=== PATIENT | female | born 1940 | race Caucasian/White ===

== ENCOUNTER 2016-09-28 04:53 | Inpatient (IN) | payer MEDICARE ==
[2016-09-28 05:18] LABS: Urine Bilirubin Negative (NEGATIVE); Urine Blood Negative /ul (NEGATIVE); Urine Ketone Negative (NEGATIVE); Urine Nitrite Negative (NEGATIVE); Urine Protein 15 mg/dL (NEGATIVE); Urine Specific Gravity >=1.030 SP.GR. (1.005-1.010); Urine Urobilinogen Normal (NORMAL); Urine pH 5.5 pH (5.0-7.0)
[2016-09-28 05:19] LABS: Urine Appearance Clear; Urine Bacteria TRACE; Urine Color Dark Yellow; Urine RBC 0-5 /hpf (0-5); Urine WBC 0-5 /hpf (0-5)
[2016-09-28 05:20] LABS: Urine Amorphous Sediment Few - 1+ (NONE-FEW); Urine Mucus Few - 1+
--- NOTE | 2016-09-28 05:36 | ERNOTE ---
Neuro HPI ER Record Presenting Symptoms: weakness, confusion Time Seen by Provider: 09/28/16 05:05 Source: patient, family Exam Limitations: no limitations Immunizations: IMMUNIZATION HX Immunizations Up to Date Yes History of Influenza Vaccine No Hx Pneumococcal Vaccination No Allergies/Adverse Reactions: Allergies Allergy/AdvReac Type Severity Reaction Status Date / Time Penicillins Allergy Verified 07/24/15 18:38 Home Medications: HOME MEDICATIONS Aspirin [Aspirin Enteric Coated] 81 mg PO DAILY 11/23/12 [Last Taken 04/16/15 06 :30] Donepezil HCl 5 mg PO DAILY 11/23/12 [Last Taken 04/16/15 06:30] Fluticasone/Salmeterol [Advair 250-50 Diskus] 1 puff IH BID #0 disk.w.dev [Last Taken 04/16/15 06:30] Levothyroxine Sodium [Synthroid] 150 mcg PO DAILY 09/28/16 [Last Taken Unknown] Tiotropium [place] [Spiriva] 18 mcg IH DAILY 09/28/16 [Last Taken Unknown] Levofloxacin [Levaquin] 750 mg PO DAILY #5 tablet 10/02/16 [Last Taken Unknown] Potassium Chloride [Klor-Con 10] 20 meq PO BID #60 tablet.sa 10/02/16 [Last Taken Unknown] - History of Present Illness Narrative: states the patient has been more sleepy for the past 24 hours and tonight having difficulty breathing Onset: gradual onset Severity: moderate - Character of Deficits Baseline Cognition: Present: alert, oriented x 4 - with early alzheimers - treated Review of Systems - Review of Systems Constitutional: Present: fatigue, decreased activity level EYE: Present: no symptoms reported ENT: Present: no symptoms reported Respiratory: Present: See HPI, shortness of breath. Absent: cough Cardiology: Absent: chest pain Gastrointestinal/Abdominal: Present: no symptoms reported Genitourinary: Present: no symptoms reported Musculoskeletal: Present: no symptoms reported Skin: Present: no symptoms reported Neurological: Absent: numbness, tingling Endocrine: Present: no symptoms reported Hematologic/Lymphatic: Present: no symptoms reported Psych: Present: no symptoms reported - Patient's Past Medical History Patient History - Medical: Alzheimer's Disease, Diabetes Type 2, Dementia, Hypothyroidism Patient History - Cardiac/Respiratory: COPD Patient History - Cancer: Lung Patient History - Surgical Procedures: Hysterectomy, Total Hip Replacement Patient History - Other: None - Family History Mother Family History - Medical: Father Family History - Medical: Family History - Cardiac/Respiratory: COPD - Social History Living Situations: spouse Psych History: No pertinent hx Smoking Status: Former smoker Have you smoked in the past 12 months: No Alcohol Use: none Drug Use: none - Immunizations Immunizations Up to Date: Yes Hx Pneumococcal Vaccination: No History of Influenza Vaccine: No Physical Exam - Physical Exam General Appearance: Present: wd/wn, alert, no apparent distress Eye Exam: Normal inspection: bilateral, PERRL: bilateral Ears, Nose, Throat: Present: dry mucous membranes - lips cracked and peeling Neck: Present: normal inspection Respiratory: Present: no respiratory distress, decreased breath sounds, expiration (prolonged) Cardiovascular/Chest: Present: regular rate, rhythm, no murmur, normal peripheral pulses Gastrointestinal/Abdominal: Present: normal bowel sounds, tenderness - midline/ suprapubic Back Exam: Present: normal inspection Extremity Exam: Present: normal inspection, no edema Neurological Exam: Present: alert, oriented, normal mood/affect, no motor/ sensory deficits Skin Exam: Present: normal color, warm/dry David Coma Scale - Assess Eye Opening: Spontaneous Motor: Obeys Commands Verbal: Oriented - Total Coma Scale Total: 15 ED Progress - Results and Orders Patient's Lab Results:: I have reviewed the patient's lab results. Results and Orders: Laboratory Tests 09/28/16 09/28/16 05:15 06:25 WBC 26.8 H Hgb 14.0 Hct 42.0 Plt Count 260 Neutrophils % (Manual) 55 Band Neuts % (Manual) 36 H Lymphocytes % (Manual) 6 L Toxic Granulation 1+ Toxic Vacuolation 3+ Dohle Bodies 3+ Urine Color Dark yellow Urine Appearance Clear Urine pH 5.5 Ur Specific [place] >=1.030 Urine Protein 15 H Urine Glucose (UA) Negative Urine Ketones Negative Urine Blood Negative Urine Nitrate Negative Urine Bilirubin Negative Prot Sulfosalicylic Acd Negative Urine Urobilinogen Normal Ur Leukocyte Esterase Negative Urine RBC 0-5 Urine WBC 0-5 Ur Epithelial Cells 5-10 H Amorphous Sediment Few - 1+ Urine Bacteria Trace Urine Mucus Few - 1+ H Urine Culture Comments Culture to follow - Vital Signs Patient's Vital Signs:: I have reviewed the patient's vital signs. Vital Signs: Vital Signs 09/28/16 09/28/16 04:54 05:16 Temperature 37.2 C Pulse Rate 101 H 98 Respiratory 18 Rate Blood Pressure 113/43 O2 Sat by Pulse 86 L Oximetry - X-Ray X-Ray #1 X-Ray: chest Interpretation: Interp. by hi X-ray Comments: RLL infiltrate. chronic scarring bilateral bases. changes of COPD - Progress/Reassessment Chief Complaint: Altered Mental Status Departure Clinical Impression: Pneumonia involving right lung Qualifiers: Pneumonia type: due to unspecified organism Lung location: lower lobe of lung Qualified Code(s): J18.1 - Lobar pneumonia, unspecified organism - Departure Disposition: [facility] Condition: Stable
[2016-09-28 06:30] LABS: Mean Corpuscular Hemoglobin 29.7 pg (27-31); Mean Corpuscular Hgb Conc 33.3 g/dl (32-36); Mean Platelet Volume 10.2 fl (6.0-9.5); Platelet Count 260 K/mm3 (150-450); Red Blood Count 4.72 M/mm3 (4.2-5.4); Red Cell Distribution Width 14.3 % (11.5-14.0); White Blood Count 26.8 K/mm3 (4.0-10.5)
--- OUTSIDE RECORDS SUMMARY | 2016-09-28 06:32 | XMS REPORT | Continuity of Care Document ---
:1940 Author Organization [facility] ([facility]) Address [address] [place] [address] Phone [phone] Care Team Providers Name Role Phone Antione Woody Primary Care Provider [phone] Source Comments This disclosure is being made pursuant to the Care Everywhere program, applicable federal and state laws, and may not contain all informaitonavailable regarding this patient.[facility] ([facility]) Active Allergies and Adverse Reactions Allergen Noted Date Severity Reactions Comments Penicillins 01/02/2015 Unknown Family reported Current Medications Prescription Sig. Disp. Refills Start Date End Date Status fluticasone-salmeterol Use 2 Puffs by Active (ADVAIR 250-50) inhaler inhalation every 12 hours aspirin 81 mg EC tablet Take 81 mg by mouth Active daily atorvastatin 40 mg Take 40 mg by mouth Active tablet daily donepezil 5 mg tablet Take 5 mg by mouth Active daily fenofibrate 54 mg Take 54 mg by mouth Active tablet every morning before breakfast albuterol-ipratropium Use 3 mL by Active 2.5-0.5 mg/3 mL inhalation 3 times inhalation solution daily as needed levothyroxine 175 mcg Take 175 mcg by Active tablet mouth every morning before breakfast polyethylene glycol Take 17 g by mouth Active 3350 (MIRALAX) 17 daily In 12 ounces gram/dose powder of juice or water multivitamin tablet Take 1 Tab by mouth Active daily albuterol 90 Use 2 Puffs by Active mcg/Actuation inhaler inhalation every 6 hours as needed tiotropium (SPIRIVA) 18 Use 18 mcg by Active mcg inhalation capsule inhalation daily metoPROLol succinate Take 100 mg by mouth Active 100 mg XL tablet daily INHALER, ASSIST DEVICES Active (VORTEX HOLDING CHAMBER ADULT NA ) losartan 100 mg tablet Take 100 mg by mouth Active daily BENEFIBER (GUAR GUM) PO Take 6 g by mouth Active daily Add one tbsp to 12 ounces of juice or water daily. Take with Miralax. venlafaxine 75 mg Take 75 mg by mouth Active tablet daily codeine 30 mg tablet Take 1 Tab (30 mg 10 Tab 0 01/06/2015 Active total) by mouth every 4 hours as needed gabapentin 300 mg Take 100 mg by mouth Active capsule 3 times daily levETIRAcetam 500 mg Take 500 mg by mouth Active tablet 2 times daily acetaminophen 325 mg Take 650 mg by mouth Active tablet every 4 hours as needed docusate 100 mg capsule Take 100 mg by mouth Active 2 times daily as needed BISACODYL PO Take by mouth as Active needed traMADol 50 mg tablet Take 50 mg by mouth Active every 6 hours as needed Active Problems Problem Noted Date Closed pelvic ring fracture 01/15/2015 Right hip pain 01/06/2015 Overview: Severe osteopenia. No acute fractures. KALYN (acute kidney injury) 01/06/2015 Overview: Will utilize IV fluids and continue to monitor labs Urinary tract infection with hematuria 01/03/2015 Overview: ecoli UTI on admission ( see culture result from [facility] under media tab); treated with 3 days of Bactrim Altered mental status 01/02/2015 SAH (subarachnoid hemorrhage) 01/02/2015 Overview: CT could not exclude SAH, most likely vascular calcifications. Will continue to monitor neurologic status. Fracture of humeral shaft, right, closed 01/02/2015 Social History Tobacco Use Types Packs/Day Years Used Date Former Smoker 2 30 Quit: 01/02/2007 Tobacco Cessation:Counseling Given: Yes Comments: Alcohol Use Drinks/Week oz/Week Comments No Last Filed Vital Signs Vital Sign Reading Time Taken Blood Pressure 107/63 02/12/2015 11:09 AM CDT Pulse 78 02/12/2015 11:09 AM CDT Temperature 36.1 C (97 F) 02/12/2015 11:09 AM CDT Respiratory Rate 18 01/02/2015 10:00 AM CDT Height 1.651 m (5' 5") 02/12/2015 11:09 AM CDT Weight 69.4 kg (153 lb) 02/12/2015 11:09 AM CDT Body Mass Index 25.46 02/12/2015 11:09 AM CDT Oxygen Saturation 91% 01/06/2015 8:02 AM CDT Plan of Care Health Maintenance Due Date Last Done Comments Hepatitis B Vaccine (1 of 3 - Primary Series) 1940 Tdap Vaccine 1951 Lipid Disorder Screening 1958 Td Vaccine 1958 Mammogram 1980 Colonoscopy 1990 Zoster Vaccine 2000 Osteoporosis Screening (DXA Bone Density) 2005 Pneumococcal Vaccine (1 of 2 - PCV13) 2005 Influenza Vaccine: Seasonal (#1) 01/31/2016 Results from Last 3 Months Not on file
[2016-09-28 06:34] LABS: Total Cells Counted 100
[2016-09-28 06:42] LABS: Albumin * 3.2 gm/dl (3.4-5.0); BUN/Creatinine Ratio 20.4 (9.0-21.6); Bilirubin, Total 1.8 mg/dL (0.0-1.1); Ca. Corrected For Albumin 8.9 mg/dL (8.4-10.2); Calcium * 8.6 mg/dL (7.9-10.9); Potassium 3.9 mmol/L (3.4-4.6); Total Protein 7.1 gm/dL (6.2-8.2)
[2016-09-28 06:48] LABS: Band 36 % (0-2.0); Basophil 1 % (0-1); Dohle Bodies 3+; Immature Granulocyte 2 (0-1); Lymphocyte 6 % (20-51); Neutrophil 55 % (42-75); Neutrophil # 14.7 K/mm3 (1.3-6.0); Platelet Estimate Normal (NORMAL); Toxic Granulation 1+
--- OUTSIDE RECORDS SUMMARY | 2016-09-28 06:54 | XMS REPORT | Continuity of Care Document ---
:1940 Author Organization [facility] ([facility]) Address [address] [place] [address] Phone [phone] Care Team Providers Name Role Phone Antione Woody Primary Care Provider [phone] Source Comments This disclosure is being made pursuant to the Care Everywhere program, applicable federal and state laws, and may not contain all informaitonavailable regarding this patient.[facility] ([facility]) Active Allergies and Adverse Reactions Allergen Noted [...]
[2016-09-28] MEDS ORDERED: NORMAL SALINE 1,000 ML IV PRN (06:55)
[2016-09-28 06:58] LABS: Anion Gap 17.4 mmol/L (6.8-13.8); Carbon Dioxide 24.5 mmol/L (24-32.6)
[2016-09-28] MEDS ORDERED: AZITHROMYCIN 500 MG in DEXTROSE 5 % IN WATER 250 ML IV ONE ×4 (11:56→12:30)
[2016-09-28] MEDS ORDERED: ALBUTEROL SULFATE 2.5 MG/0.5 ML VIAL.NEB IH PRN (11:58)
[2016-09-28] MEDS: NORMAL SALINE 1,000 ML IV SCH ×6 (12:00→23:54)
[2016-09-28] MEDS: ACETAMINOPHEN 325 MG TABLET PO PRN (13:24)
[2016-09-28] MEDS: ENOXAPARIN SODIUM 30 MG/0.3 ML SYRG SC SCH (13:32)
[2016-09-28] MEDS: NORMAL SALINE 1,000 ML IV PRN ×2 (17:07→22:33)
--- NOTE | 2016-09-28 21:00 | HP ---
Chief Complaint - Chief Complaint Date of Service: 09/28/16 Time of Service: 20:51 Chief Complaint: Somnolent History of Present Illness: This is a 76 y/o diabetic woman with Alzheimers. She came to the [facility] ER early this morning, because her stated the patient had been more sleepy for the past 24 hours and the morning of presentation was having difficulty breathing. In the ER, she was found to have pneumonia, sepsis, and a room air O2 sat on presentation of 86%. Cultures are pending. Fluid boluses have been given. Patient is clinically improving. - Patient's Past Medical History Patient History - Medical: Alzheimer's Disease, Diabetes Type 2, Dementia, Hypothyroidism Patient History - Cardiac/Respiratory: COPD Patient History - Cancer: Lung, Lymphoma Patient History - Surgical Procedures: Hysterectomy, Total Hip Replacement Patient History - Other: None - Family History Mother Family History - Medical: Father Family History - Medical: Family History - Cardiac/Respiratory: COPD - Social History Living Situations: home Psych History: No pertinent hx Smoking Status: Former smoker Have you smoked in the past 12 months: No Do you dip or chew tobacco: No Smoking Start Date: 09/28/60 Smoking Stop Date: 09/28/06 Patient requests Smoking Cessation Consult: No Initiate information on Smoking Cessation: No Alcohol Use: none Drug Use: none - Immunizations Immunizations Up to Date: Yes Hx Pneumococcal Vaccination: No History of Influenza Vaccine: No Review Of Systems (GEN) - Review of Systems Generalized/Overall Review: Present: Weakness, Malaise EENTM: Present: No Symptoms Reported Respiratory: Present: Cough Cardiac: Present: No Symptoms Reported Abdominal: Present: No Symptoms Reported Genitourinary: Present: No Symptoms Reported Musculoskeletal: Present: No Symptoms Reported Neurological: Present: Other - somnolent Skin: Present: No Symptoms Reported Endocrine: Present: No Symptoms Reported Misc: All systems neg except as marked Immunizations: IMMUNIZATION HX Immunizations Up to Date Yes History of Influenza Vaccine No Hx Pneumococcal Vaccination No Allergies/Adverse Reactions: Allergies Allergy/AdvReac Type Severity Reaction Status Date / Time Penicillins Allergy Verified 07/24/15 18:38 Home Medications: HOME MEDICATIONS Aspirin [Aspirin Enteric Coated] 81 mg PO DAILY 11/23/12 [Last Taken 04/16/15 06 :30] Donepezil HCl 5 mg PO DAILY 11/23/12 [Last Taken 04/16/15 06:30] Fluticasone/Salmeterol [Advair 250-50 Diskus] 1 puff IH BID #0 disk.w.dev [Last Taken 04/16/15 06:30] Levothyroxine Sodium [Synthroid] 150 mcg PO DAILY 09/28/16 [Last Taken Unknown] Tiotropium [place] [Spiriva] 18 mcg IH DAILY 09/28/16 [Last Taken Unknown] Exam - Exam Vital Signs: Vital Signs - Last Taken Selected Entries 09/28/16 09/28/16 04:54 18:25 Temperature 37.2 C 36.9 C Temperature Temporal Artery Oral Source Scan Pulse Rate 101 H 100 Pulse Rhythm Regular Pulse Strength Normal Respiratory 18 20 Rate Respiratory Normal Depth Respiratory Normal Effort Respiratory Normal Pattern Blood Pressure 113/43 122/74 Blood Pressure Sitting Supine Position O2 Sat by Pulse 86 L 100 Oximetry Oxygen Delivery Room Air Nasal Cannula Method Oxygen Flow 2 Rate Constitutional: Present: Alert, Cooperative, Well developed, Well nourished, No distress ENT Exam: Present: normal ENT inspection, hearing grossly normal Eye Exam: bilateral eye: normal inspection, PERRL, EOMI Neck: Present: normal inspection Back Exam: Present: normal inspection Respiratory: Present: no respiratory distress, rhonchi Cardiovascular/Chest: Present: regular rate, rhythm, no murmur Peripheral Pulses: carotid (R): 2+, carotid (L): 2+, radial (R): 2+, radial (L) : 2+ Abdomen: Present: Normal bowel sounds, soft, nontender, nondistended, no rebound tenderness, no hepatospenomegaly, no masses Extremity: Present: normal range of motion, non-tender, normal inspection, no pedal edema, normal capillary refill Skin Exam: Present: normal color, warm/dry, no cyanosis Neurologic: Present: alert, other - disoriented except to person Appearance: Present: appropriate appearance, neat Eye contact: Present: cooperative, good eye contact Diagnostic Studies: Abnormal Lab Results 09/28/16 09/28/16 09/28/16 Range/Units 06:55 09:55 14:51 Lactic Acid, Venous 3.2 H* 3.3 H* 2.2 H* (0.4-2.0) mmol/L Microbiology 09/28/16 07:10 Sputum Culture - Preliminary Expectorate Sputum Laboratory Results WBC 26.8 K/mm3 (4.0-10.5) H 09/28/16 06:25 RBC 4.72 M/mm3 (4.2-5.4) 09/28/16 06:25 Hgb 14.0 gm/dL (12.5-16.0) 09/28/16 06:25 Hct 42.0 % (37.0-47.0) 09/28/16 06:25 MCV 89.0 fl (78-100) 09/28/16 06:25 MCH 29.7 pg (27-31) 09/28/16 06:25 MCHC 33.3 g/dl (32-36) 09/28/16 06:25 RDW 14.3 % (11.5-14.0) H 09/28/16 06:25 Plt Count 260 K/mm3 (150-450) 09/28/16 06:25 MPV 10.2 fl (6.0-9.5) H 09/28/16 06:25 Neutrophils % (Manual) 55 % (42-75) 09/28/16 06:25 Band Neuts % (Manual) 36 % (0-2.0) H 09/28/16 06:25 Lymphocytes % (Manual) 6 % (20-51) L 09/28/16 06:25 Basophils % (Manual) 1 % (0-1) 09/28/16 06:25 Immature Granulocytes 2 (0-1) H 09/28/16 06:25 Neutrophils # (Manual) 14.7 K/mm3 (1.3-6.0) H 09/28/16 06:25 Lymphocytes # (Manual) 1.6 k/mm3 (1.5-3.5) 09/28/16 06:25 Basophils # (Manual) 0.3 k/mm3 (0.0-0.1) H 09/28/16 06:25 Toxic Granulation 1+ 09/28/16 06:25 Toxic Vacuolation 3+ 09/28/16 06:25 Dohle Bodies 3+ 09/28/16 06:25 Platelet Estimate Normal (NORMAL) 09/28/16 06:25 Sodium 140 mmol/L (132-142) 09/28/16 06:25 Plasma Sodium 141 mmol/L (130-142) 09/28/16 06:25 Potassium 3.9 mmol/L (3.4-4.6) 09/28/16 06:25 Chloride 102 mmol/L (97-106) 09/28/16 06:25 Carbon Dioxide 24.5 mmol/L (24-32.6) 09/28/16 06:25 Anion Gap 17.4 mmol/L (6.8-13.8) H 09/28/16 06:25 BUN 37 mg/dL (3-23) H D 09/28/16 06:25 Creatinine 1.81 mg/dL (0.4-1.4) H D 09/28/16 06:25 Est GFR (Non-Af Amer) 29 mL/min (60-130) L D 09/28/16 06:25 BUN/Creatinine Ratio 20.4 (9.0-21.6) 09/28/16 06:25 Random Glucose 170 mg/dL (70-110) H 09/28/16 06:25 Lactic Acid, Venous 2.2 mmol/L (0.4-2.0) H* 09/28/16 14:51 Calcium 8.6 mg/dL (7.9-10.9) 09/28/16 06:25 Calcium Adj for Albumin 8.9 mg/dL (8.4-10.2) 09/28/16 06:25 Total Bilirubin 1.8 mg/dL (0.0-1.1) H 09/28/16 06:25 AST 14 U/L (0-48) 09/28/16 06:25 ALT 15 U/L (19-67) L 09/28/16 06:25 Alkaline Phosphatase 95 U/L (50-170) 09/28/16 06:25 Total Protein 7.1 gm/dL (6.2-8.2) 09/28/16 06:25 Albumin 3.2 gm/dl (3.4-5.0) L 09/28/16 06:25 Procalcitonin 65.16 ng/mL (0.05-0.50) H 09/28/16 06:25 Urine Color Dark yellow 09/28/16 05:15 Urine Appearance Clear 09/28/16 05:15 Urine pH 5.5 pH (5.0-7.0) 09/28/16 05:15 Ur Specific [place] >=1.030 SP.GR. (1.005-1.010) 09/28/16 05:15 Urine Protein 15 mg/dL (NEGATIVE) H 09/28/16 05:15 Urine Glucose (UA) Negative mg/dL (NEGATIVE) 09/28/16 05:15 Urine Ketones Negative mg/dL (NEGATIVE) 09/28/16 05:15 Urine Blood Negative /ul (NEGATIVE) 09/28/16 05:15 Urine Nitrate Negative (NEGATIVE) 09/28/16 05:15 Urine Bilirubin Negative mg/dl (NEGATIVE) 09/28/16 05:15 Prot Sulfosalicylic Acd Negative mg/dL (0) 09/28/16 05:15 Urine Urobilinogen Normal EU/dl (NORMAL) 09/28/16 05:15 Ur Leukocyte Esterase Negative /ul (NEGATIVE) 09/28/16 05:15 Urine RBC 0-5 /hpf (0-5) 09/28/16 05:15 Urine WBC 0-5 /hpf (0-5) 09/28/16 05:15 Ur Epithelial Cells 5-10 /hpf (0-5) H 09/28/16 05:15 Amorphous Sediment Few - 1+ (NONE-FEW) 09/28/16 05:15 Urine Bacteria Trace (NONE) 09/28/16 05:15 Urine Mucus Few - 1+ (NONE) H 09/28/16 05:15 Urine Culture Comments Culture to follow 09/28/16 05:15 Assessment/Plan - Narrative Narrative: O2. Monitor labs. Follow sugars. IV antibiotics. Estimate stay of 3 days. - Assessment/Plan (1) Diabetes mellitus type 2 in nonobese Problem: Chronic (2) Acute respiratory failure with hypoxia Problem: Acute (3) Pneumonia Problem: Acute Qualifiers: Pneumonia type: due to unspecified organism Laterality: right Lung location: lower lobe of lung Qualified Code(s): J18.1 - Lobar pneumonia, unspecified organism (4) Sepsis Problem: Acute Qualifiers: Sepsis type: sepsis due to unspecified organism Qualified Code(s): A41.9 - Sepsis, unspecified organism (5) Alzheimers disease Problem: Chronic Qualifiers: Alzheimer's disease onset: late-onset Dementia behavioral disturbance: without behavioral disturbance Qualified Code(s): G30.1 - Alzheimer's disease with late onset; F02.80 - Dementia in other diseases classified elsewhere without behavioral disturbance (6) Chronic obstructive pulmonary disease Problem: Chronic Qualifiers: COPD type: chronic bronchitis Chronic bronchitis type: simple Qualified Code(s): J41.0 - Simple chronic bronchitis
[2016-09-28] MEDS: FLUTICASONE/SALMETEROL 14 PUFF DISK.W.DEV IH SCH (21:29)
[2016-09-29 05:52] LABS: Hematocrit 34.8 % (37.0-47.0); Hemoglobin 11.6 gm/dL (12.5-16.0); Mean Cell Volume 90.9 fl (78-100); Mean Corpuscular Hemoglobin 30.3 pg (27-31); Mean Corpuscular Hgb Conc 33.3 g/dl (32-36); Mean Platelet Volume 10.5 fl (6.0-9.5); Neutrophil # 15.1 K/mm3 (1.3-6.0); Neutrophil % 89.2 % (42-75.0); Platelet Count 198 K/mm3 (150-450); Red Blood Count 3.83 M/mm3 (4.2-5.4); Red Cell Distribution Width 14.2 % (11.5-14.0)
[2016-09-29 06:07] LABS: Albumin * 2.2 gm/dl (3.4-5.0); Anion Gap 13.1 mmol/L (6.8-13.8); BUN/Creatinine Ratio 29.5 (9.0-21.6); Bilirubin, Total 0.9 mg/dL (0.0-1.1); Ca. Corrected For Albumin 8.9 mg/dL (8.4-10.2); Calcium * 7.8 mg/dL (7.9-10.9); Carbon Dioxide 24.5 mmol/L (24-32.6); Potassium 3.6 mmol/L (3.4-4.6); Total Protein 5.8 gm/dL (6.2-8.2)
[2016-09-29] MEDS: NORMAL SALINE 1,000 ML IV PRN ×2 (06:34→18:15)
[2016-09-29] MEDS ORDERED: LEVOTHYROXINE SODIUM 100 MCG TABLET ONE (06:38)
[2016-09-29] MEDS ORDERED: LEVOTHYROXINE SODIUM 50 MCG TABLET ONE (06:38)
[2016-09-29] MEDS: LEVOTHYROXINE SODIUM 150 MCG TABLET PO SCH (06:39)
[2016-09-29] MEDS ORDERED: LEVOTHYROXINE SODIUM 125 MCG TABLET PO SCH (07:00)
[2016-09-29] MEDS ORDERED: ALBUTEROL SULFATE 2.5 MG/3 ML VIAL.NEB IH PRN (08:48)
[2016-09-29] MEDS: FLUTICASONE/SALMETEROL 14 PUFF DISK.W.DEV IH SCH ×2 (09:14→21:08)
[2016-09-29] MEDS: TIOTROPIUM BROMIDE 5 CAP INHALER IH SCH (09:15)
[2016-09-29] MEDS: MULTIVITAMINS 1 CAP CAPSULE PO SCH (09:15)
[2016-09-29] MEDS: ASPIRIN 81 MG TABLET.DR PO SCH (09:15)
[2016-09-29] MEDS: DONEPEZIL HCL 10 MG TABLET PO SCH (09:15)
[2016-09-29] MEDS: AZITHROMYCIN 500 MG in DEXTROSE 5 % IN WATER 250 ML IV SCH ×2 (09:16)
[2016-09-29] MEDS: ENOXAPARIN SODIUM 30 MG/0.3 ML SYRG SC SCH (13:10)
--- NOTE | 2016-09-29 18:20 | PN ---
Subjective - Date and Time Seen Date: 09/29/16 Time: 07:40 Subjective Narrative: Her is present in the room this morning. Both she and he say she is doing considerably better. Breathing and cough have both improved. She thinks she can eat breakfast. Her history is impaired by her Alzheimers. Objective - Review of Systems Generalized/Overall Review: Reports: Malaise EENTM: Reports: No Symptoms Reported Respiratory: Reports: Cough, Shortness of Breath Cardiac: Reports: No Symptoms Reported Abdominal: Reports: No Symptoms Reported Genitourinary Symptoms: Reports: No Symptoms Reported Musculoskeletal Complaints: Reports: No Symptoms Reported Neurological: Reports: No Symptoms Reported Skin: Reports: No Symptoms Reported Endocrine: Reports: No Symptoms Reported Misc: All systems neg except as marked - Vitals Vitals: Last Vital Signs Selected Entries 09/29/16 02:46 Temperature 37 C Temperature Temporal Artery Source Scan Pulse Rate 91 Pulse Rhythm Regular Respiratory 22 H Rate Respiratory Normal Depth Respiratory Normal Effort Blood Pressure 139/45 Blood Pressure Supine Position O2 Sat by Pulse 99 Oximetry Oxygen Delivery Nasal Cannula Method Oxygen Flow 2 Rate - Abnormal Lab Findings Abnormal Lab Findings: Abnormal Lab Results 09/29/16 09/29/16 Range/Units 05:00 05:00 WBC 17.0 H D (4.0-10.5) K/mm3 RBC 3.83 L (4.2-5.4) M/mm3 Hgb 11.6 L (12.5-16.0) gm/dL Hct 34.8 L (37.0-47.0) % RDW 14.2 H (11.5-14.0) % MPV 10.5 H (6.0-9.5) fl Immature Gran % (Auto) 2.00 H (0.001-0.429) % Immature Gran # (Auto) 0.34 H (0.000-0.0310) K/mm3 Neutrophils % 89.2 H (42-75.0) % Lymphocytes % 5.4 L (20-51) % Neutrophils # 15.1 H (1.3-6.0) K/mm3 Lymphocytes # 0.9 L (1.5-3.5) k/mm3 Chloride 108 H (97-106) mmol/L BUN 31 H (3-23) mg/dL Est GFR (Non-Af Amer) 54 L D (60-130) mL/min BUN/Creatinine Ratio 29.5 H (9.0-21.6) Calcium 7.8 L (7.9-10.9) mg/dL ALT 10 L (19-67) U/L Total Protein 5.8 L (6.2-8.2) gm/dL Albumin 2.2 L (3.4-5.0) gm/dl - Exam Constitutional: Present: Alert, Cooperative, Well developed, Well nourished, No distress ENT Exam: Present: normal ENT inspection, hearing grossly normal Neck: Present: normal inspection Respiratory: Present: no respiratory distress, rhonchi Cardiovascular/Chest: Present: regular rate, rhythm, no murmur Abdomen: Present: Normal bowel sounds, soft, nontender, nondistended, no rebound tenderness, no hepatospenomegaly, no masses Extremity: Present: normal inspection, no pedal edema Skin Exam: Present: normal color, warm/dry, no cyanosis Neurologic: Present: alert. Absent: oriented x 3 Appearance: Present: appropriate appearance, neat Eye contact: Present: cooperative, good eye contact Cauti Physician Documentation - Urinary Catheter Management Urethral ([place]) Date of Insertion: 09/28/16 Time of Insertion: 14:00 Assessment/Plan Plan Narrative: Increase ambulation. DC bowie and telemetry. Wean O2. Continue IV antibiotics. Follow labs. - Problems/Diagnosis (1) Diabetes mellitus type 2 in nonobese Problem: Chronic (2) Acute respiratory failure with hypoxia Problem: Acute (3) Pneumonia Problem: Acute Qualifiers: Pneumonia type: due to unspecified organism Laterality: right Lung location: lower lobe of lung Qualified Code(s): J18.1 - Lobar pneumonia, unspecified organism (4) Sepsis Problem: Acute Qualifiers: Sepsis type: sepsis due to unspecified organism Qualified Code(s): A41.9 - Sepsis, unspecified organism (5) Alzheimers disease Problem: Chronic Qualifiers: Alzheimer's disease onset: late-onset Dementia behavioral disturbance: without behavioral disturbance Qualified Code(s): G30.1 - Alzheimer's disease with late onset; F02.80 - Dementia in other diseases classified elsewhere without behavioral disturbance (6) Chronic obstructive pulmonary disease Problem: Chronic Qualifiers: COPD type: chronic bronchitis Chronic bronchitis type: simple Qualified Code(s): J41.0 - Simple chronic bronchitis
[2016-09-30] MEDS: NORMAL SALINE 1,000 ML IV PRN (02:01)
[2016-09-30 04:48] LABS: Hematocrit 34.3 % (37.0-47.0); Hemoglobin 11.4 gm/dL (12.5-16.0); Mean Cell Volume 89.3 fl (78-100); Mean Corpuscular Hemoglobin 29.7 pg (27-31); Mean Corpuscular Hgb Conc 33.2 g/dl (32-36); Mean Platelet Volume 10.5 fl (6.0-9.5); Neutrophil # 9.7 K/mm3 (1.3-6.0); Neutrophil % 81.7 % (42-75.0); Platelet Count 230 K/mm3 (150-450); Red Blood Count 3.84 M/mm3 (4.2-5.4); Red Cell Distribution Width 13.9 % (11.5-14.0); White Blood Count 11.8 K/mm3 (4.0-10.5)
[2016-09-30 05:12] LABS: Albumin * 2.2 gm/dl (3.4-5.0); Anion Gap 12.3 mmol/L (6.8-13.8); BUN/Creatinine Ratio 20.9 (9.0-21.6); Bilirubin, Total 0.6 mg/dL (0.0-1.1); Ca. Corrected For Albumin 9.1 mg/dL (8.4-10.2); Carbon Dioxide 24.9 mmol/L (24-32.6); Potassium 3.2 mmol/L (3.4-4.6); Total Protein 6.1 gm/dL (6.2-8.2)
[2016-09-30] MEDS: LEVOTHYROXINE SODIUM 150 MCG TABLET PO SCH (06:43)
[2016-09-30] MEDS: TIOTROPIUM BROMIDE 5 CAP INHALER IH SCH (08:35)
[2016-09-30] MEDS: FLUTICASONE/SALMETEROL 14 PUFF DISK.W.DEV IH SCH ×2 (08:35→20:31)
[2016-09-30] MEDS: ASPIRIN 81 MG TABLET.DR PO SCH (08:36)
[2016-09-30] MEDS: MULTIVITAMINS 1 CAP CAPSULE PO SCH (08:36)
[2016-09-30] MEDS: DONEPEZIL HCL 10 MG TABLET PO SCH (08:36)
[2016-09-30] MEDS: AZITHROMYCIN 500 MG in DEXTROSE 5 % IN WATER 250 ML IV SCH ×2 (09:10)
--- NOTE | 2016-09-30 12:22 | PN ---
Subjective - Date and Time Seen Date: 09/30/16 Time: 06:50 Subjective Narrative: Her is present in the room this morning. Both she and he say she is doing considerably better. Breathing and cough have both improved. She thinks she can eat breakfast. Her history is impaired by her Alzheimers. She went [place] a [place] in [place]. Objective - Review of Systems Generalized/Overall Review: Reports: Malaise EENTM: Reports: No Symptoms Reported Respiratory: Reports: Cough, Shortness of Breath Cardiac: Reports: No Symptoms Reported Abdominal: Reports: No Symptoms Reported Genitourinary Symptoms: Reports: No Symptoms Reported Musculoskeletal Complaints: Reports: No Symptoms Reported Neurological: Reports: No Symptoms Reported Skin: Reports: No Symptoms Reported Endocrine: Reports: No Symptoms Reported Misc: All systems neg except as marked - Vitals Vitals: Last Vital Signs Selected Entries 09/30/16 06:41 Temperature 36.8 C Temperature Oral Source Pulse Rate 79 Blood Pressure 143/71 Blood Pressure Supine Position O2 Sat by Pulse 96 Oximetry Oxygen Delivery Room Air Method Oxygen Flow 0 Rate - Abnormal Lab Findings Abnormal Lab Findings: Abnormal Lab Results 09/30/16 09/30/16 Range/Units 04:43 04:43 WBC 11.8 H D (4.0-10.5) K/mm3 RBC 3.84 L (4.2-5.4) M/mm3 Hgb 11.4 L (12.5-16.0) gm/dL Hct 34.3 L (37.0-47.0) % MPV 10.5 H (6.0-9.5) fl Immature Gran % (Auto) 0.70 H (0.001-0.429) % Immature Gran # (Auto) 0.08 H (0.000-0.0310) K/mm3 Neutrophils % 81.7 H (42-75.0) % Lymphocytes % 9.1 L (20-51) % Neutrophils # 9.7 H (1.3-6.0) K/mm3 Lymphocytes # 1.1 L (1.5-3.5) k/mm3 Potassium 3.2 L (3.4-4.6) mmol/L Random Glucose 114 H (70-110) mg/dL ALT 13 L (19-67) U/L Total Protein 6.1 L (6.2-8.2) gm/dL Albumin 2.2 L (3.4-5.0) gm/dl - Exam Constitutional: Present: Alert, Cooperative, Well developed, Well nourished, No distress ENT Exam: Present: normal ENT inspection, hearing grossly normal Neck: Present: normal inspection Respiratory: Present: rhonchi Cardiovascular/Chest: Present: regular rate, rhythm, no murmur Abdomen: Present: Normal bowel sounds, soft, nontender, nondistended, no rebound tenderness, no hepatospenomegaly, no masses Extremity: Present: normal inspection, no pedal edema Skin Exam: Present: normal color, warm/dry, no cyanosis Neurologic: Present: alert Appearance: Present: appropriate appearance, neat Eye contact: Present: cooperative, good eye contact Cauti Physician Documentation - Urinary Catheter Management Urethral (William) Date of Insertion: 09/28/16 Time of Insertion: 14:00 Assessment/Plan Plan Narrative: IV antibiotics. More ambulation. Follow labs. - Problems/Diagnosis (1) Diabetes mellitus type 2 in nonobese Problem: Chronic (2) Acute respiratory failure with hypoxia Problem: Acute (3) Pneumonia Problem: Acute Qualifiers: Pneumonia type: due to unspecified organism Laterality: right Lung location: lower lobe of lung Qualified Code(s): J18.1 - Lobar pneumonia, unspecified organism (4) Sepsis Problem: Acute Qualifiers: Sepsis type: sepsis due to unspecified organism Qualified Code(s): A41.9 - Sepsis, unspecified organism (5) Alzheimers disease Problem: Chronic Qualifiers: Alzheimer's disease onset: late-onset Dementia behavioral disturbance: without behavioral disturbance Qualified Code(s): G30.1 - Alzheimer's disease with late onset; F02.80 - Dementia in other diseases classified elsewhere without behavioral disturbance (6) Chronic obstructive pulmonary disease Problem: Chronic Qualifiers: COPD type: chronic bronchitis Chronic bronchitis type: simple Qualified Code(s): J41.0 - Simple chronic bronchitis
[2016-09-30] MEDS: ENOXAPARIN SODIUM 30 MG/0.3 ML SYRG SC SCH (12:53)
[2016-09-30] MEDS ORDERED: POTASSIUM CHLORIDE 20 MEQ TABLET.SA PO ONE (19:44)
[2016-09-30] MEDS: ACETAMINOPHEN 325 MG TABLET PO PRN (20:28)
[2016-09-30] MEDS: amLODIPine BESYLATE 5 MG TABLET PO SCH (20:28)
[2016-10-01 06:04] LABS: Hematocrit 38.5 % (37.0-47.0); Hemoglobin 13.1 gm/dL (12.5-16.0); Mean Cell Volume 87.9 fl (78-100); Mean Corpuscular Hemoglobin 29.9 pg (27-31); Mean Platelet Volume 10.4 fl (6.0-9.5); Platelet Count 271 K/mm3 (150-450); Red Blood Count 4.38 M/mm3 (4.2-5.4); Red Cell Distribution Width 13.5 % (11.5-14.0); White Blood Count 9.5 K/mm3 (4.0-10.5)
[2016-10-01] MEDS: LEVOTHYROXINE SODIUM 150 MCG TABLET PO SCH (06:13)
[2016-10-01 06:17] LABS: Anion Gap 10.9 mmol/L (6.8-13.8); BUN/Creatinine Ratio 12.8 (9.0-21.6); Calcium * 8.6 mg/dL (7.9-10.9); Carbon Dioxide 28.2 mmol/L (24-32.6); Potassium 3.1 mmol/L (3.4-4.6)
[2016-10-01] MEDS: FLUTICASONE/SALMETEROL 14 PUFF DISK.W.DEV IH SCH ×2 (08:43→20:14)
[2016-10-01] MEDS: TIOTROPIUM BROMIDE 5 CAP INHALER IH SCH (08:44)
[2016-10-01] MEDS: MULTIVITAMINS 1 CAP CAPSULE PO SCH (08:45)
[2016-10-01] MEDS: amLODIPine BESYLATE 5 MG TABLET PO SCH (08:45)
[2016-10-01] MEDS: ASPIRIN 81 MG TABLET.DR PO SCH (08:45)
[2016-10-01] MEDS: DONEPEZIL HCL 10 MG TABLET PO SCH (08:45)
[2016-10-01] MEDS ORDERED: POTASSIUM CHLORIDE 10 MEQ TABLET.SA PO SCH (09:00)
[2016-10-01] MEDS: AZITHROMYCIN 500 MG in DEXTROSE 5 % IN WATER 250 ML IV SCH ×2 (09:24)
--- NOTE | 2016-10-01 11:24 | PN ---
Subjective - Date and Time Seen Date: 10/01/16 Time: 07:10 Subjective Narrative: Her is present in the room this morning. Both she and he say she is doing considerably better. Breathing and cough have both improved. She is eating well and walking. Objective - Review of Systems Generalized/Overall Review: Reports: Malaise EENTM: Reports: No Symptoms Reported Respiratory: Reports: Cough Cardiac: Reports: No Symptoms Reported Abdominal: Reports: No Symptoms Reported Genitourinary Symptoms: Reports: No Symptoms Reported Musculoskeletal Complaints: Reports: No Symptoms Reported Neurological: Reports: Pre-existing Deficit Skin: Reports: No Symptoms Reported Endocrine: Reports: No Symptoms Reported Misc: All systems neg except as marked - Vitals Vitals: Last Vital Signs Selected Entries 10/01/16 06:47 Temperature 36.7 C Temperature Oral Source Pulse Rate 74 Respiratory 20 Rate Blood Pressure 176/70 Blood Pressure Sitting Position O2 Sat by Pulse 94 Oximetry Oxygen Delivery Room Air Method Oxygen Flow 0 Rate - Abnormal Lab Findings Abnormal Lab Findings: Abnormal Lab Results 10/01/16 10/01/16 Range/Units 05:10 05:10 MPV 10.4 H (6.0-9.5) fl Immature Gran % (Auto) 1.60 H (0.001-0.429) % Immature Gran # (Auto) 0.15 H (0.000-0.0310) K/mm3 Lymphocytes % 12.2 L (20-51) % Eosinophils % 3.9 H (0.0-3.0) % Neutrophils # 7.0 H (1.3-6.0) K/mm3 Lymphocytes # 1.2 L (1.5-3.5) k/mm3 Potassium 3.1 L (3.4-4.6) mmol/L Random Glucose 118 H (70-110) mg/dL - Exam Constitutional: Present: Alert, Cooperative, Well developed, Well nourished, No distress ENT Exam: Present: normal ENT inspection, hearing grossly normal Neck: Present: normal inspection Respiratory: Present: no respiratory distress, rhonchi Cardiovascular/Chest: Present: regular rate, rhythm, no murmur Abdomen: Present: Normal bowel sounds, soft, nontender, nondistended, no rebound tenderness, no hepatospenomegaly, no masses Extremity: Present: normal inspection, no pedal edema Skin Exam: Present: normal color, warm/dry, no cyanosis Neurologic: Present: alert Appearance: Present: appropriate appearance, neat Eye contact: Present: cooperative, good eye contact Cauti Physician Documentation - Urinary Catheter Management Urethral (William) Date of Insertion: 09/28/16 Time of Insertion: 14:00 Assessment/Plan Plan Narrative: Follow labs. Continue IV antibiotics. Home soon. - Problems/Diagnosis (1) Diabetes mellitus type 2 in nonobese Problem: Chronic (2) Acute respiratory failure with hypoxia Problem: Acute (3) Pneumonia Problem: Acute Qualifiers: Pneumonia type: due to Pneumococcus Laterality: right Lung location: lower lobe of lung Qualified Code(s): J13 - Pneumonia due to Streptococcus pneumoniae (4) Sepsis Problem: Acute Qualifiers: Sepsis type: sepsis due to unspecified organism Qualified Code(s): A41.9 - Sepsis, unspecified organism (5) Alzheimers disease Problem: Chronic Qualifiers: Alzheimer's disease onset: late-onset Dementia behavioral disturbance: without behavioral disturbance Qualified Code(s): G30.1 - Alzheimer's disease with late onset; F02.80 - Dementia in other diseases classified elsewhere without behavioral disturbance (6) Chronic obstructive pulmonary disease Problem: Chronic Qualifiers: COPD type: chronic bronchitis Chronic bronchitis type: simple Qualified Code(s): J41.0 - Simple chronic bronchitis
[2016-10-01] MEDS: ENOXAPARIN SODIUM 30 MG/0.3 ML SYRG SC SCH (12:43)
[2016-10-02 06:30] LABS: Anion Gap 10.4 mmol/L (6.8-13.8); BUN/Creatinine Ratio 11.1 (9.0-21.6); Calcium * 8.4 mg/dL (7.9-10.9); Carbon Dioxide 28.6 mmol/L (24-32.6); Estimated Creat Clear 57.4
[2016-10-02] MEDS: LEVOTHYROXINE SODIUM 150 MCG TABLET PO SCH (07:15)
[2016-10-02] MEDS ORDERED: POTASSIUM CHLORIDE 20 MEQ TABLET.SA PO ONE (07:20)
[2016-10-02] MEDS ORDERED: POTASSIUM CHLORIDE 20 MEQ TABLET.SA ONE (08:36)
[2016-10-02] MEDS: TIOTROPIUM BROMIDE 5 CAP INHALER IH SCH (08:39)
[2016-10-02] MEDS: MULTIVITAMINS 1 CAP CAPSULE PO SCH (08:39)
[2016-10-02] MEDS: DONEPEZIL HCL 10 MG TABLET PO SCH (08:39)
[2016-10-02] MEDS: ASPIRIN 81 MG TABLET.DR PO SCH (08:39)
[2016-10-02] MEDS: amLODIPine BESYLATE 5 MG TABLET PO SCH (08:39)
[2016-10-02] MEDS: FLUTICASONE/SALMETEROL 14 PUFF DISK.W.DEV IH SCH (08:39)
[2016-10-02] MEDS ORDERED: LEVOFLOXACIN 750 MG TABLET PO SCH (11:00)
[2016-10-02 11:05] VITALS: BP 170/65
[2016-10-02] MEDS: ENOXAPARIN SODIUM 30 MG/0.3 ML SYRG SC SCH (13:25)
--- NOTE | 2016-10-02 13:37 | DS ---
(1) Sepsis Problem: Acute Qualifiers: Sepsis type: Streptococcus group A Qualified Code(s): A40.0 - Sepsis due to streptococcus, group A (2) Streptococcus pneumoniae pneumonia Problem: Acute Qualifiers: Laterality: right Lung location: lower lobe of lung Qualified Code(s): J13 - Pneumonia due to Streptococcus pneumoniae Description of Stay: ADMISSION DATE: 09.28.2016 DISCHARGE DATE: 10.02.2016 ADMISSION HPI: This is a 76 y/o diabetic woman with Alzheimers. She came to the [facility] ER early this morning, because her stated the patient had been more sleepy for the past 24 hours and the morning of presentation was having difficulty breathing. In the ER, she was found to have pneumonia, sepsis, and a room air O2 sat on presentation of 86%. Cultures are pending. Fluid boluses have been given. Patient is clinically improving. PROBLEM BASED HOSPITAL COURSE: 1. RLL Pneumonia due to Streptococcus pneumoniae -Treated with IV antibiotics during admission and transitioned to oral Levaquin at discharge. Patient will take 5 additional days of oral Levaquin after discharge -Repeat CXR in 4-6 weeks to monitor for resolution 2. Sepsis due to #1 -Patient recieved appropriate IVFs with at least 30cc/kg -Lactic acid initially elevated and returned to normal prior to discharge -Treatment plan as above 3. Hypokalemia -Secondary to IVFs and poor appetite with decreased PO intake -Potassium level improved to 3.3 just prior to discharge -Continue KCl 20mEq BID. [facility] to check a BMP on 10.06.2016 and send results to my office for review. I am hopefully as appetite and PO intake improves, we will be able to discontinue the potassium supplementation within the next week or so. DISPOSITION: Patient discharged home with who is her primary caregiver due to the patient's baseline dementia. [facility] will follow patient after discharge. FOLLOW-UP APPOINTMENTS: PCP, Dr. Bautista, within 1-2 weeks NEW OR CHANGED MEDICATIONS: Levaquin 750mg PO daily X 5 days KCl 20 mEq PO BID until instructed to discontinue DISCONTINUED MEDICATIONS: None Procedures Performed: none Discharge Disposition: Home with [facility] Disposition: Home self-care Condition: Stable Discharge Activity: Activity as tolerated Discharge Diet: Resume usual diet Problem Oriented Discharge Instructions to Patient/Family: Community-Acquired Pneumonia, Adult, [id number] Additional Patient Instructions (free text): Follow-up with PCP within 1-[address] Bautista 10/17 at 11:15 Discharge home with [facility] - PT, RN and aide. Please have [facility] draw a BMP on 10.05.2016 and have results sent to Dr. Bautista's office for review. Prescriptions (Any new or edited meds): Levofloxacin [Levaquin] 750 mg PO DAILY #5 tablet Potassium Chloride [Klor-Con 10] 20 meq PO BID #60 tablet.sa Complete Home Medications List: Complete Home Medication List: Aspirin [Aspirin Enteric Coated] 81 mg PO DAILY 11/23/12 Donepezil HCl 5 mg PO DAILY 11/23/12 Fluticasone/Salmeterol [Advair 250-50 Diskus] 1 puff IH BID #0 disk.w.dev Levothyroxine Sodium [Synthroid] 150 mcg PO DAILY 09/28/16 Tiotropium [place] [Spiriva] 18 mcg IH DAILY 09/28/16 Levofloxacin [Levaquin] 750 mg PO DAILY #5 tablet 10/02/16 Potassium Chloride [Klor-Con 10] 20 meq PO BID #60 tablet.sa 10/02/16 Amb Orders for Discharge: Basic Metabolic Panel Time Frame: 10/05/16, Facility: [facility], Location: Home Health Care
[2016-10-02] MEDS ORDERED: POTASSIUM CHLORIDE 10 MEQ TABLET.SA PO SCH (21:00)
== END 2016-10-02 09:30 | disposition home health service (06) | DRG 871 ==
LOC: ER 04:53 → MS 06:49
PROVIDERS: ADMIT Nurse Practitioner; ATTEND Internal Medicine
DX: A40.0 Sepsis due to streptococcus, group A (principal); J96.01 Acute respiratory failure with hypoxia; J13 Pneumonia due to Streptococcus pneumoniae; E87.6 Hypokalemia; R65.20 Severe sepsis without septic shock; F02.80 Dementia in other diseases classified elsewhere, unspecified severity, without behavioral disturbance, psychotic disturbance, mood disturbance, and anxiety; E11.9 Type 2 diabetes mellitus without complications; J41.0 Simple chronic bronchitis; G30.1 Alzheimer's disease with late onset; E03.9 Hypothyroidism, unspecified; Z79.4 Long term (current) use of insulin; Z79.82 Long term (current) use of aspirin